=== PATIENT | female | born 1965 | race Caucasian/White ===

== ENCOUNTER 2018-02-06 09:47 | Outpatient (RCR) | payer OTHER | END 2018-02-17 | LOC: M PT 09:47 | DX: Z51.89 Encounter for other specified aftercare (principal); M19.92 Post-traumatic osteoarthritis, unspecified site | CPT/HCPCS: 97010 ==

== ENCOUNTER → 2018-02-06 | Outpatient (CLI) | payer OTHER ==
[2018-02-06 12:17] LABS: BASO # 0.1 10^3/uL (0.0-0.2); BASO % 1.2 % (0.0-1.0); EOS # 0.6 10^3/uL (0.0-0.50); EOS % 8.3 % (0.0-3.0); HEMATOCRIT 46.2 % (36.0-47.0); HEMOGLOBIN 15.4 g/dl (12.0-15.5); IMMATURE GRANULOCYTE % 0.3 % (0-3.0); LYMPH # 2.1 10^3/uL (1.5-4.5); LYMPH % 26.6 % (24.0-44.0); MEAN CORPUSCULAR HEMOGLOBIN 29.7 pg (27.0-33.0); MEAN CORPUSCULAR HGB CONC 33.3 g/dl (32.0-36.5); MEAN CORPUSCULAR VOLUME 89.2 fl (80.0-96.0); MONO # 0.4 10^3/uL (0.0-0.8); MONO % 5.7 % (0.0-5.0); NEUTROPHILS # 4.5 10^3/uL (1.8-7.7); NEUTROPHILS % 57.9 % (36.0-66.0); PLATELET COUNT, AUTOMATED 374 10^3/uL (150-450); RED BLOOD COUNT 5.18 10^6/uL (4.00-5.40); RED CELL DISTRIBUTION WIDTH 13.2 % (11.5-14.5); WHITE BLOOD COUNT 7.7 10^3/uL (4.0-10.0)
[2018-02-06 13:17] LABS: ALBUMIN 4.1 GM/DL (3.2-5.2); ALBUMIN/GLOBULIN RATIO 1.05 (1.00-1.93); ALKALINE PHOSPHATASE 74 U/L (45-117); ALT/SGPT 36 U/L (12-78); ANION GAP 6 MEQ/L (8-16); AST/SGOT 22 U/L (7-37); BILIRUBIN,TOTAL 0.7 MG/DL (0.2-1.0); BLOOD UREA NITROGEN 12 MG/DL (7-18); CARBON DIOXIDE LEVEL 29 MEQ/L (21-32); CHLORIDE LEVEL 104 MEQ/L (98-107); CHOLESTEROL LEVEL 205 MG/DL (<200); CHOLESTEROL RISK RATIO 3.059 (<5); CREATININE FOR GFR 1.09 MG/DL (0.55-1.30); FREE T4 0.96 NG/DL (0.76-1.46); GLOMERULAR FILTRATION RATE 56.3 (>51); GLUCOSE, FASTING 89 MG/DL (70-100); HDL CHOLESTEROL 67 MG/DL (>40); LDL CHOLESTEROL 106 MG/DL (<100); NON-HDL-C 138 MG/DL; POTASSIUM SERUM 4.5 MEQ/L (3.5-5.1); SODIUM LEVEL 139 MEQ/L (136-145); TRIGLYCERIDES LEVEL 160 MG/DL (<150)
[2018-02-06 15:48] LABS: ESTIMATED AVERAGE GLUCOSE 117 MG/DL (60-110); HEMOGLOBIN A1c 5.7 %
== END ==
LOC: M LAB 11:36
DX: F33.2 Major depressive disorder, recurrent severe without psychotic features (principal); Z13.220 Encounter for screening for lipoid disorders; M19.92 Post-traumatic osteoarthritis, unspecified site; E66.9 Obesity, unspecified; Z87.81 Personal history of (healed) traumatic fracture
CPT/HCPCS: 73590

== ENCOUNTER → 2018-03-12 | Outpatient (CLI) | payer OTHER | LOC: M WHC 10:53 | DX: Z12.31 Encounter for screening mammogram for malignant neoplasm of breast (principal) | CPT/HCPCS: 77067 ==

== ENCOUNTER → 2019-04-07 | Outpatient (REF) | payer OTHER ==
[2019-04-07 16:48] LABS: BASO # 0.1 10^3/uL (0.0-0.2); BASO % 1.7 % (0.0-1.0); EOS # 0.4 10^3/uL (0.0-0.5); EOS % 6.6 % (0.0-3.0); HEMATOCRIT 47.5 % (36.0-47.0); LYMPH # 1.9 10^3/uL (1.5-5.0); MEAN CORPUSCULAR HGB CONC 31.6 g/dl (32.0-36.5); MEAN CORPUSCULAR VOLUME 91.9 fl (80.0-96.0); MONO # 0.4 10^3/uL (0.0-0.8); MONO % 6.7 % (0.0-5.0); NEUTROPHILS % 51.8 % (36.0-66.0); PLATELET COUNT, AUTOMATED 367 10^3/uL (150-450); RED BLOOD COUNT 5.17 10^6/uL (4.00-5.40); WHITE BLOOD COUNT 5.8 10^3/uL (4.0-10.0)
[2019-04-07 17:01] LABS: BILIRUBIN,TOTAL 0.7 MG/DL (0.2-1.0); CALCIUM LEVEL 9.7 MG/DL (8.5-10.1); CHOLESTEROL RISK RATIO 3.075 (<5); CREATININE FOR GFR 1.04 MG/DL (0.55-1.30); GLOMERULAR FILTRATION RATE 59.2 (>51); POTASSIUM SERUM 4.9 MEQ/L (3.5-5.1); TOTAL PROTEIN 7.7 GM/DL (6.4-8.2)
== END ==
LOC: M SFHCLERA 10:46
PROVIDERS: ATTEND Nurse Practitioner Family
DX: Z76.89 Persons encountering health services in other specified circumstances (principal); Z13.220 Encounter for screening for lipoid disorders; Z87.898 Personal history of other specified conditions

== ENCOUNTER → 2020-07-07 | Outpatient (CLI) | payer OTHER ==
[2020-07-07 11:40] LABS: BASO # 0.1 10^3/uL (0.0-0.2); BASO % 1.8 % (0.0-1.0); EOS # 0.5 10^3/uL (0.0-0.5); EOS % 7.3 % (0.0-3.0); HEMATOCRIT 46.5 % (36.0-47.0); HEMOGLOBIN 14.8 g/dl (12.0-15.5); LYMPH # 2.1 10^3/uL (1.5-5.0); LYMPH % 34.1 % (24.0-44.0); MEAN CORPUSCULAR HGB CONC 31.8 g/dl (32.0-36.5); MEAN CORPUSCULAR VOLUME 91.2 fl (80.0-96.0); MONO # 0.5 10^3/uL (0.0-0.8); MONO % 8.3 % (2.0-8.0); NEUTROPHILS % 48.2 % (36.0-66.0); PLATELET COUNT, AUTOMATED 352 10^3/uL (150-450); WHITE BLOOD COUNT 6.2 10^3/uL (4.0-10.0)
[2020-07-07 12:14] LABS: ALBUMIN 3.9 GM/DL (3.2-5.2); BILIRUBIN,TOTAL 0.5 MG/DL (0.2-1.0); CALCIUM LEVEL 9.8 MG/DL (8.5-10.1); CHOLESTEROL RISK RATIO 3.218 (<5); CREATININE FOR GFR 1.12 MG/DL (0.55-1.30); GLOMERULAR FILTRATION RATE 54.2 (>51); POTASSIUM SERUM 4.8 MEQ/L (3.5-5.1); TOTAL PROTEIN 7.5 GM/DL (6.4-8.2)
[2020-07-08 18:06] LABS: ANA (HEP2) Negative (.)
== END ==
LOC: M WUC 09:44
PROVIDERS: ATTEND Nurse Practitioner Family
DX: R21 Rash and other nonspecific skin eruption (principal)

== ENCOUNTER → 2020-07-14 | Outpatient (CLI) | payer OTHER ==
--- NOTE | 2020-07-14 10:08 | REP ---
INDICATION: DYSURIA, ENLARGED LT KIDNEY. Incidental finding dilated left renal pelvis on MRI July 2019. Patient gave the technologist history of an abnormal kidney with stent placed in 1996. No follow-up since stent removal. COMPARISON: Comparison MR lumbar spine images May 08, 2019.. TECHNIQUE: Urinary tract sonography. FINDINGS: Scanning at the level of the urinary bladder shows no abnormality. Renal cortical echogenicity pattern is normal bilaterally and contours are smooth. There is an extrarenal pelvis configuration the left kidney and moderate left-sided hydronephrosis and proximal hydroureter. The AP dimension of the dilated left renal pelvis is 4.5 cm. Renal pelvis has a somewhat rounded appearance suggesting your crown genital UPJ obstruction. No calculus is seen. No mass is observed in either kidney. Renal cortical echogenicity pattern is slightly increased on the left. Normal on the right.. No right-sided hydronephrosis is seen. No cyst is seen. The right kidney measures 11.3 x 6.0 x 5.4 cm. Left renal dimensions are 12.5 x 5.2 x 4.4 cm. 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 Slightly increased renal cortical echogenicity pattern left kidney consistent with chronic change. No right-sided hydronephrosis seen. <Electronically signed by Sonny Harris > 07/14/20 [id number]
== END ==
LOC: M RAD 07:40
PROVIDERS: ATTEND Nurse Practitioner Family
DX: R30.0 Dysuria (principal); Z87.448 Personal history of other diseases of urinary system

== ENCOUNTER → 2020-07-26 | Outpatient (REF) | payer OTHER ==
[2020-07-26 18:16] LABS: APPEARANCE, URINE CLEAR (CLEAR); BILIRUBIN, URINE AUTO NEGATIVE (NEGATIVE); COLOR, URINE YELLOW (YELLOW); GLUCOSE, URINE (UA) AUTO NEGATIVE (NEGATIVE); KETONE, URINE AUTO NEGATIVE (NEGATIVE); LEUKOCYTE ESTERASE, URINE AUTO NEGATIVE (NEGATIVE); NITRITE, URINE AUTO NEGATIVE (NEGATIVE); PROTEIN, URINE AUTO NEGATIVE (NEGATIVE); SPECIFIC GRAVITY URINE AUTO 1.005 (1.002-1.035); UROBILINOGEN, URINE AUTO 0.2 mg/dL (0.0-2.0)
[2020-07-26 18:17] LABS: BACTERIA, URINE AUTO 1+ (NEGATIVE); BLOOD, URINE BLOOD NEGATIVE (NEGATIVE); MUCUS, URINE SMALL (NEGATIVE); RBC, URINE AUTO 1 /HPF (0-3); SQUAMOUS EPITHELIAL CELL UR AU 1 /HPF (0-6); WBC, URINE AUTO 1 /HPF (0-3)
== END ==
LOC: M SMT 16:35
PROVIDERS: ATTEND Nurse Practitioner Women's Health
DX: R10.9 Unspecified abdominal pain (principal)

== ENCOUNTER → 2020-08-09 | Outpatient (CLI) | payer OTHER ==
[~2020-08-09] MED LIST: ISOVUE-370 76% 100ML VIAL As Ordered ONE
--- NOTE | 2020-08-09 17:57 | REP ---
INDICATION: HYDRONEPHROSIS. COMPARISON: None. TECHNIQUE: CT of the abdomen and pelvis with multiphase scanning, initially without IV contrast and after IV contents with visual in delayed scanning after contrast enhancement. There are no comparison studies. FINDINGS: There is marked dilatation of the left renal pelvis and calices. On the delayed images after contrast enhancement contrast can be seen layering dependently in the posterior left renal calices. No contrast is seen in the left renal pelvis. The left ureter is very tiny and quite difficult to visualize. This is compatible with the clinical history of left UPJ stricture. No left renal solid or cystic masses are identified. No left renal calculi are identified. There is no left renal perinephric stranding. The right renal calices, right renal pelvis and right ureter are unremarkable. Contrast is identified within the right renal calices, pelvis and ureter on the delayed enhanced images. There is a 1 cm Bosniak type 1 cyst in the right renal upper pole. There are no solid right renal masses. No perinephric stranding. No right renal calculi. The visualized lung elias are unremarkable. The hepatic parenchyma demonstrates geographic areas of hypodensity compatible with steatosis. The gallbladder is unremarkable. Pancreas and spleen are unremarkable. The adrenals are unremarkable. Abdominal aorta, bowel and mesentery are unremarkable. There is no periaortic adenopathy or mass. Pelvis: The appendix is not identified, however, there is no pericecal inflammation or abscess. Terminal ileum is unremarkable. There is no pelvic adenopathy or ascites. There is a hysterectomy. The vaginal cuff and adnexa are unremarkable. There is even a spears of the articular margins in the left sacroiliac articulation, possibly sacroiliitis. The right sacroiliac articulation is unremarkable. IMPRESSION: Marked left hydronephrosis and no dilatation of the left ureter proximal mid or distal compatible with chronic left UPJ stricture. No perinephric stranding. Bosniak type 1 left renal cyst. Hepato steatosis. No renal or ureteral calculi. 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 The right sacroiliac joint is unremarkable. <Electronically signed by Tristen Butts > 08/09/20 [id number]
== END ==
LOC: M RAD 15:55
PROVIDERS: ATTEND Nurse Practitioner Women's Health
DX: N13.30 Unspecified hydronephrosis (principal)
CPT/HCPCS: 74178; Q9967